=== PATIENT | male | born 1990 | race Caucasian/White ===

== ENCOUNTER 2019-07-26 05:29 | Day surgery (SDC) | payer SELFPAY ==
[~2019-07-26] VITALS: Ht 182.9 cm; Wt 91.1 kg
[2019-07-26 05:46] VITALS: BP 118/72; PULSE 73; TEMP 98.2
[2019-07-26] MEDS ORDERED: PERCOCET 325 MG1 TA2 PO (05:46)
[2019-07-26 07:39] VITALS: BP 113/65; PULSE 62; TEMP 97.1
--- NOTE | 2019-07-26 07:39 | NUR ---
The patient arrived back to [facility] from the operating room at this time. The patient appears drowsy but arouses easily to his name. Post operative vital signs were started at this time. The patient's right upper extremtiy has an moni wrap/splint dressing in place that appears clean, dry and intact. The patient denies wanting anything to eat or drink at this time. Call light is within reach. The patient's right arm is elvated on a pillow at this time. Will continue to monitor the patient.
--- NOTE | 2019-07-26 07:45 | NUR ---
The patient's parents were brought back to be at his bedside. The patient appears more alert at this time and requests to try some apple juice. Call light is within reach. Will continue to monitor the patient.
[2019-07-26 07:54] VITALS: BP 105/67; PULSE 49
--- NOTE | 2019-07-26 08:00 | NUR ---
The patient appears to be tolerating juice well and denies wanting anything further at this time. Vital signs appear stable. The patient's parents remain at his bedside. Will continue to monitor the patient.
[2019-07-26 08:09] VITALS: BP 114/69; PULSE 49
[2019-07-26 08:25] VITALS: BP 109/76; PULSE 48
--- NOTE | 2019-07-26 08:25 | NUR ---
The patient appears to be resting comfortably on the cart at this time. Respirations even and unlabored. Will continue to monitor the patient.
[2019-07-26] MEDS ORDERED: ULTRAM 50MG TAB50 MG PO (08:27)
[2019-07-26] MEDS ORDERED: NORCO 325 MG-7.1 TAB PO (08:27)
[2019-07-26] MEDS ORDERED: PHENERGAN 25 TA25 MG PO (08:28)
--- NOTE | 2019-07-26 08:45 | NUR ---
Discharge instrcutions were reviewed with the patient and his parents at this time. They all verbalized understanding and have no questions for the nurse at this time. The patient's IV to his left hand was removed and a pressure dressing was applied to the site. The patient was instructed to get dressed with the assistance of his mother and let he staff know when he is ready to be escorted out.
--- NOTE | 2019-07-26 08:55 | NUR ---
The patient was escorted out via wheelchair to a private vehicle by RAKESH Holliday. The patient's belongings and discharge paperwork were sent with him. The patient's parents are present to drive him home.
== END 2019-07-26 08:55 | disposition home or self-care (01) ==
LOC: SDCO 05:29
DX: S52.571A Other intraarticular fracture of lower end of right radius, initial encounter for closed fracture (principal); S52.611A Displaced fracture of right ulna styloid process, initial encounter for closed fracture; J45.909 Unspecified asthma, uncomplicated; F17.210 Nicotine dependence, cigarettes, uncomplicated; Z83.3 Family history of diabetes mellitus; Z82.49 Family history of ischemic heart disease and other diseases of the circulatory system
CPT/HCPCS: C1713; J0690; J2250; J2704; J3010; J7120